=== PATIENT | female | born 1990 | race African-American/Black ===

== ENCOUNTER 2022-10-10 09:06 | Day surgery (SDC) | payer OTHER ==
[2022-10-10 09:34] VITALS: BMI 44.1
[2022-10-10] MEDS ORDERED: hydrALAZINE 20 MG/ML VIAL SLOW IVP PRN (10:07)
[2022-10-10] MEDS ORDERED: Lactated Ringer's 1,000 ML IV SCH (10:15)
[2022-10-10 10:37] LABS: Bilirubin Neg (Negative); Blood, Urine 150 (Negative); Clarity Clear (Clear); Glucose, Urine (Dipstick) Normal (Negative); Ketone, Urine Negative (Negative); Leukocyte Negative (Negative); Nitrite Negative (Negative); Protein, Urine (Dipstick) Negative (Neg-Trace); Urobilinogen Normal mg/dL (Less than 2)
[2022-10-10 10:52] LABS: Bacteria/HPF Rare-Few HPF (None Seen); CAUTI Indications for Culture Pregnancy; Squamous Epithelial 0-3 HPF (0-3); WBC/HPF 0-3 HPF (0-3)
[2022-10-10 10:54] LABS: Urine Culture Reflex Yes Yes
[2022-10-10] MEDS ORDERED: Acetaminophen 500 MG TAB PO SCH (13:00)
[2022-10-10] MEDS ORDERED: Fentanyl 100 MCG/2 ML VIAL SLOW IVP SCH (15:00)
[2022-10-10] MEDS ORDERED: NIFEdipine 10 MG CAP PO SCH ×2 (15:00→15:30)
[2022-10-10] MEDS ORDERED: NIFEdipine 10 MG CAP PO PRN (15:00)
[2022-10-10] MEDS ORDERED: Dextrose 5%-Lactated Ringers 1,000 ML IV SCH (15:00)
[2022-10-10 15:58] LABS: FFN Internal QC Analyzer PASS (PASS); FFN Internal QC Cassette PASS (PASS); Fetal Fibronectin Negative (Negative)
== END 2022-10-10 17:10 | disposition home or self-care (01) ==
LOC: CSHLD/OP 09:06
PROVIDERS: ATTEND Obstetrics & Gynecology
DX: O47.02 False labor before 37 completed weeks of gestation, second trimester (principal); O26.892 Other specified pregnancy related conditions, second trimester; R10.9 Unspecified abdominal pain; Z79.899 Other long term (current) drug therapy; Z3A.26 26 weeks gestation of pregnancy
CPT/HCPCS: 76815; 81001; 82731; 87086; 87480; 87510; 87660; 96360; 99284; J3010